=== PATIENT | male | born 1970 | race Caucasian/White ===

== ENCOUNTER 2016-06-02 08:27 | Emergency (ER) | payer SELFPAY ==
[~2016-06-02] VITALS: Ht 172.7 cm; Wt 85.0 kg
[2016-06-02] MEDS ORDERED: SOD CHLORIDE 0.9% 1,000 ML IV STA (08:35)
--- NOTE | 2016-06-02 08:41 | ERD ---
ER Documentation Chief Complaint Date/Time DATE: 06/02/16 TIME: 08:36 Chief Complaint HPI This is a 53-year-old male with an unknown past medical history. The patient was found outside a gas station lying supine on the ground. There is no signs of trauma or drug paraphernalia but EMS indicated the patient smelled of alcohol. A bystander noticed that the patient was shaking but it was unknown if the patient had any tonic-clonic movements. The patient did not bite his tongue or have any loss of urinary incontinence. EMS indicated the patient was drowsy but easily arousable. ROS All systems reviewed and are negative except as per history of present illness. Medications Home Meds Unable to Obtain Active Prescriptions or Reported Meds Allergies Allergies: Coded Allergies: Unknown: Unable to obtain (Unverified , 06/02/16) Physical Exam Vitals Vital Signs Date Time Temp Pulse Resp B/P Pulse Ox O2 Delivery O2 Flow Rate FiO2 06/02/16 08:35 98.1 65 18 133/77 98 Physical Exam Constitutional:Well-developed. Disheveled. HEENT:Normocephalic. Atraumatic.Pupils were equal round reactive to light. Moist mucous membranes.No tonsillar exudates. No nasoseptal hematoma. No hemotympanum. No blood present within the oropharynx peer Neck: No nuchal rigidity. No lymphadenopathy. No posterior cervical spine tenderness or step-offs. Respiratory: Not using accessory muscles of respiration.Lungs were clear to auscultation bilaterally. No rhonchi. No rales. No wheezing. Cardiovascular: Regular rate regular rhythm.No murmurs. No rubs were appreciated.S1, S2 normal. Distal pulses are palpable 2+ bilaterally. GI: Abdomen was soft. Nontender. Non Distended. No pulsatile abdominal masses or bruits. No rebound. No guarding. Bowel sounds were present and normal. Muscle skeletal: Full range of motion of both the upper and lower extremities bilaterally.Normal muscle tone.No assymetrical calf tenderness or swelling. Skin: No petechia, no purpura. No lesions on the palms or the soles of the feet. No maculopapular rash. NEURO: Patient was drowsy. Patient arousable to sternal rub. Opened eyes in response to pain. Moaning incomprehensible sounds. Gait not observed as patient was too altered to ambulate Result Diagram: 06/02/1690506/02/16905 Results 24 hrs Laboratory Tests Test 06/02/16 09:06 Acetaminophen Level < 10.0ug/ml Activated Partial Thromboplast Time 30.3Sec Alanine Aminotransferase (ALT/SGPT) 35IU/L Albumin 4.4g/dl Albumin/Globulin Ratio 1.18 Alkaline Phosphatase 72IU/L Anion Gap 21 Aspartate Amino Transf (AST/SGOT) 43IU/L Basophils # 0.110^3/ul Basophils % 1.0% Blood Morphology Comment Blood Urea Nitrogen 10mg/dl Calcium Level 8.7mg/dl Carbon Dioxide Level 26mmol/L Chloride Level 102mmol/L Creatinine 0.72mg/dl Direct Bilirubin 0.00mg/dl Eosinophils # 0.010^3/ul Eosinophils % 0.8% Ethyl Alcohol Level 387.0mg/dl Globulin 3.70g/dl Glucose Level 95mg/dl Hematocrit 43.7% Hemoglobin 15.2g/dl INR International Normalized Ratio 1.02 Indirect Bilirubin 0.2mg/dl Lymphocytes # 1.610^3/ul Lymphocytes % 27.9% Mean Corpuscular Hemoglobin 33.0pg Mean Corpuscular Hemoglobin Concent 34.7g/dl Mean Corpuscular Volume 95.3fl Mean Platelet Volume 7.2fl Monocytes # 0.310^3/ul Monocytes % 5.2% Neutrophils # 3.810^3/ul Neutrophils % 65.1% Nucleated Red Blood Cells # 0.010^3/ul Nucleated Red Blood Cells % 0.0/100WBC Platelet Count 11048^3/UL Potassium Level 3.7mmol/L Prothrombin Time 13.4Sec Prothrombin Time Ratio 1.0 Red Blood Count 4.5910^6/ul Red Cell Distribution Width 12.9% Salicylates Level < 1.0mg/dl Sodium Level 145mmol/L Total Bilirubin 0.2mg/dl Total Protein 8.1g/dl White Blood Count 5.810^3/ul Current Medications Medications (Trade) Dose Ordered Sig/Milka Route PRN Reason Start Time Stop Time Status Last Admin Dose Admin Sodium Chloride (NS) 1,000 ml @ 1,000 mls/hr Q1H STAT IV 06/02/16 08:35 06/02/16 09:34 DC 06/02/16 08:55 Procedures/MDM The patient presented to the emergency department with an acute and persistent change in their mental status. The differential diagnosis is diverse however reversible causes such as hypoglycemia, opiate overdose, thiamine deficiency were immediately considered. The patient was placed on a surveillance monitor, continuous pulse oximetry and IV access was established. The patients airway was secure however hypoxic events such as anemia, shock, or severe pulmonary disease were all considered as etiologies in this patients presentation. Circulation assessed with good cap refill and did not require fluids or pressure support. Finger stick for rapid glucose determined to be normal. Given that the patient was altered I did obtain a CT scan of the head which showed no acute intracerebral hemorrhage mass-effect or midline shift. The patient received a liter bolus of 0.9 normal saline and a banana bag is a serum ethanol was elevated at 387. Observation Note: Time: 5 hours Family Hx: No Hypertension Evaluation: Multiple exams showed improving symptoms and no evidence of impending delirium tremors. The patient was now able to ambulate without any ataxia and had no slurred speech. Departure Diagnosis: Primary Impression: Alcoholic intoxication Complication of substance-induced condition: uncomplicated Qualified Code: F10.120 - Alcoholic intoxication, uncomplicated Additional Impression: Toxic encephalopathy Condition: Paulette ROSALESHANKFLORA WADSWORTHA Jun 02, 2016 08:41
--- NOTE | 2016-06-02 09:36 | RADRPT ---
PROCEDURE: CT Brain without contrast. CLINICAL INDICATION: Patient in need of medical clearance. Ethanol use. TECHNIQUE: A CT of the brain was performed on a CT scanner utilizing axial imaging from the skull base through the vertex without IV contrast. Multiplanar reformatted images were made. Images wer e reviewed on a PACS workstation. The CTDIvol is 44.58 mGy and the DLP is 630.20 mGycm. COMPARISON: None FINDINGS: There is no intracranial hemorrhage, mass effect, or midline shift. 4.6 mm of extra-axial calcifica tion in the region of the left middle frontal sulcus likely represents sequela of remote infection o r trauma, vascular calcification. No extra-axial fluid collection is seen. The ventricles and sulci are normal in size and configuration. The density of the brain is normal, and the warner white matter differentiation appears well-preserved. The visualized paranasal sinuses and osseous structures are grossly unremarkable. IMPRESSION: 1. No evidence of acute intracranial pathology. 2. The brain is normal in appearance. RPTAT:AAJJ Physician Jose Date Time Electronically viewed and signed by Physician Jose on 06/02/2016 09:36 LORENA/
[2016-06-02 09:45] LABS: BASOPHIL # 0.1 10^3/ul (0.0-0.1); EOSINOPHILS % 0.8 % (0.0-7.0); HEMATOCRIT 43.7 % (42.0-52.0); HEMOGLOBIN 15.2 g/dl (14.0-18.0); LYMPHOCYTES # 1.6 10^3/ul (0.8-2.9); LYMPHOCYTES % 27.9 % (15.0-51.0); MEAN CORPUSCULAR HGB CONC 34.7 g/dl (32.0-37.0); MEAN CORPUSCULAR VOLUME 95.3 fl (82.0-101.0); MEAN PLATELET VOLUME 7.2 fl (7.4-10.4); MONOCYTE # 0.3 10^3/ul (0.3-0.9); MONOCYTES % 5.2 % (0.0-11.0); NEUTROPHIL # 3.8 10^3/ul (1.6-7.5); NEUTROPHILS % 65.1 % (39.0-77.0); PLATELET COUNT 207 10^3/UL (140-440); RED BLOOD COUNT 4.59 10^6/ul (4.70-6.10); RED CELL DISTRIBUTION WIDTH 12.9 % (11.5-14.5); UNCORRECTED WBC 5.8 10^3/ul (4.8-10.8); WHITE BLOOD COUNT 5.8 10^3/ul (4.8-10.8)
[2016-06-02 09:52] LABS: CONDITION 1
[2016-06-02 09:54] LABS: INR 1.02; PROTIME 13.4 Sec (12.2-14.2)
[2016-06-02 09:55] LABS: ALBUMIN 4.4 g/dl (3.3-4.9); CHLORIDE 102 mmol/L (97-110); PARTIAL THROMBOPLASTIN TIME 30.3 Sec (25.0-35.0)
[2016-06-02 09:56] LABS: POTASSIUM 3.7 mmol/L (3.5-5.1); SODIUM 145 mmol/L (135-144)
[2016-06-02 09:58] LABS: ALBUMIN/GLOBULIN RATIO 1.18; ANION GAP 21 (8-16); ASPARTATE AMINO TRANSFERASE 43 IU/L (15-46); BILIRUBIN,INDIRECT 0.2 mg/dl (0-1.1); BILIRUBIN,TOTAL 0.2 mg/dl (0.2-1.3); BLOOD UREA NITROGEN 10 mg/dl (7-20); CARBON DIOXIDE 26 mmol/L (21-31); CREATININE 0.72 mg/dl (0.61-1.24); TOTAL PROTEIN 8.1 g/dl (6.1-8.1)
[2016-06-02 09:59] LABS: ALANINE AMINOTRANSFERASE 35 IU/L (13-69); ALKALINE PHOSPHATASE 72 IU/L (42-121); CALCIUM 8.7 mg/dl (8.4-10.2); GLUCOSE 95 mg/dl (70-220)
[2016-06-02 10:17] LABS: ACETAMINOPHEN < 10.0 ug/ml (10.0-30.0); SALICYLATE < 1.0 mg/dl (5.0-30.0)
[2016-06-02] MEDS ORDERED: MAGNESIUM SULFATE 2 GM, MULTIVITAMINS 10 ML, THIAMINE 100 MG, FOLIC ACID 1 MG in SOD CH... IV SCH (12:00)
[2016-06-02 14:29] VITALS: BP 142/78; PULSE 88; RESP 18; TEMP 98.2
== END 2016-06-02 14:29 | disposition home or self-care (01) ==
LOC: E/R 08:27 → EDBD 08:27 → E/R 14:29
DX: F10.120 Alcohol abuse with intoxication, uncomplicated (principal); G92 Toxic encephalopathy; T51.0X4A Toxic effect of ethanol, undetermined, initial encounter; R40.2132 Coma scale, eyes open, to sound, at arrival to emergency department; R40.2242 Coma scale, best verbal response, confused conversation, at arrival to emergency department; R40.2352 Coma scale, best motor response, localizes pain, at arrival to emergency department
CPT/HCPCS: 70450; 80053; 80306; 85025; 85610; 85730; 96374; 99285; J3411; J3475; J7030